=== PATIENT | male | born 1945 | race Caucasian/White ===

== ENCOUNTER 2017-10-19 13:25 | Observation (INO) | payer MEDICARE, BC ==
[2017-10-19] MEDS ORDERED: NACL 0.9% 3 ML SYG IV (14:00)
[2017-10-19] MEDS ORDERED: ACETAMINOPHEN 325 MG TAB PO (14:00)
[2017-10-19] MEDS ORDERED: ONDANSETRON 4 MG INJ IV (14:00)
[2017-10-19 14:13] LABS: ADD MAN DIFF? NO
[2017-10-19 14:20] LABS: BASOPHILS % 0.1 % (0.0-2.0); EOSINOPHILS # 0.2 10^3/ul (0.0-0.5); EOSINOPHILS % 2.6 % (0.0-7.0); HEMATOCRIT 30.1 % (42.0-52.0); HEMOGLOBIN 9.8 g/dl (14.0-18.0); LYMPHOCYTES # 2.1 10^3/ul (0.8-2.9); LYMPHOCYTES % 26.6 % (15.0-51.0); MEAN CORPUSCULAR HEMOGLOBIN 30.8 pg (29.0-33.0); MEAN CORPUSCULAR HGB CONC 32.6 g/dl (32.0-37.0); MEAN CORPUSCULAR VOLUME 94.7 fl (82.0-101.0); MONOCYTE # 0.7 10^3/ul (0.3-0.9); MONOCYTES % 8.8 % (0.0-11.0); NEUTROPHIL # 4.8 10^3/ul (1.6-7.5); NEUTROPHILS % 61.1 % (39.0-77.0); PLATELET COUNT 207 10^3/UL (140-415); RED BLOOD COUNT 3.18 10^6/ul (4.70-6.10); RED CELL DISTRIBUTION WIDTH 14.6 % (11.5-14.5)
[2017-10-19 14:20] LABS: WHITE BLOOD COUNT 7.8 10^3/ul (4.8-10.8)
[2017-10-19 14:40] LABS: MAGNESIUM 1.8 mg/dl (1.7-2.5)
[2017-10-19 14:42] LABS: ALANINE AMINOTRANSFERASE 37 IU/L (13-69); ALBUMIN 4.3 g/dl (3.3-4.9); ALBUMIN/GLOBULIN RATIO 1.38; ALKALINE PHOSPHATASE 101 IU/L (42-121); ANION GAP 16 (8-16); ASPARTATE AMINO TRANSFERASE 33 IU/L (15-46); BILIRUBIN,INDIRECT 0.1 mg/dl (0-1.1); BILIRUBIN,TOTAL 0.1 mg/dl (0.2-1.3); BLOOD UREA NITROGEN 13 mg/dl (7-20); CARBON DIOXIDE 31 mmol/L (21-31); CHLORIDE 104 mmol/L (97-110); CREATININE 1.01 mg/dl (0.61-1.24); GLUCOSE 109 mg/dl (70-220); IRON 48 ug/dl (35-150); POTASSIUM 4.1 mmol/L (3.5-5.1); SODIUM 147 mmol/L (135-144); TOTAL PROTEIN 7.4 g/dl (6.1-8.1)
[2017-10-19 14:51] LABS: % IRON SATURATION 14 % SAT (22-52); TOTAL IRON BINDING CAPACITY 348 ug/dl (241-421)
[2017-10-19 14:56] LABS: INR 0.93; PROTIME 12.6 Sec (11.9-14.9)
[2017-10-19 14:57] LABS: PARTIAL THROMBOPLASTIN TIME 25.8 Sec (25.0-35.0)
[2017-10-19] MEDS: SOD CHLORIDE 0.9% 1,000 ML IV (15:14)
[2017-10-19 15:16] LABS: FERRITIN 22.8 ng/ml (11.1-264.0)
[2017-10-19] MEDS ORDERED: PAROXETINE 20 MG TAB PO (15:30)
[2017-10-19 18:19] LABS: ADD UMIC NO; UR ASCORBIC ACID NEGATIVE (NEGATIVE); UR BILIRUBIN (Dip) NEGATIVE (NEGATIVE); UR BLOOD (Dip) NEGATIVE (NEGATIVE); UR CLARITY CLEAR (CLEAR); UR COLOR YELLOW (YELLOW); UR GLUCOSE (Dip) NEGATIVE (NEGATIVE); UR KETONES (Dip) NEGATIVE (NEGATIVE); UR LEUKOCYTE ESTERASE (Dip) NEGATIVE Leu/ul (NEGATIVE); UR NITRITE (Dip) NEGATIVE (NEGATIVE); UR SPECIFIC GRAVITY (Dip) 1.015 (1.003-1.030); UR TOTAL PROTEIN (Dip) NEGATIVE (NEGATIVE); UR UROBILINOGEN (Dip) NEGATIVE (NEGATIVE)
[2017-10-19] MEDS: PEG/ELECTROLYTES 4L BTL PO (19:09)
[2017-10-19] MEDS: VALSARTAN 160 MG TAB PO (20:53)
[2017-10-19] MEDS: ATORVASTATIN 10 MG TAB PO (20:54)
[2017-10-19] MEDS: PAROXETINE 20 MG TAB PO (20:54)
[2017-10-19] MEDS: MIRTAZAPINE 15 MG TAB PO (20:54)
[2017-10-20] MEDS ORDERED: LIDOCAINE 2% (SDV) 5 ML INJ
[2017-10-20] MEDS: SOD CHLORIDE 0.9% 1,000 ML IV (05:28)
[2017-10-20] MEDS: PANTOPRAZOLE (EC) 40 MG TAB PO (06:00)
[2017-10-20 06:13] LABS: ADD MAN DIFF? NO
[2017-10-20 06:14] LABS: BASOPHILS % 0.4 % (0.0-2.0); EOSINOPHILS # 0.2 10^3/ul (0.0-0.5); EOSINOPHILS % 3.8 % (0.0-7.0); HEMOGLOBIN 9.3 g/dl (14.0-18.0); LYMPHOCYTES # 1.8 10^3/ul (0.8-2.9); MEAN CORPUSCULAR HEMOGLOBIN 30.6 pg (29.0-33.0); MEAN CORPUSCULAR HGB CONC 32.1 g/dl (32.0-37.0); MEAN CORPUSCULAR VOLUME 95.4 fl (82.0-101.0); MONOCYTE # 0.5 10^3/ul (0.3-0.9); MONOCYTES % 9.2 % (0.0-11.0); NEUTROPHIL # 2.8 10^3/ul (1.6-7.5); NEUTROPHILS % 52.8 % (39.0-77.0); PLATELET COUNT 169 10^3/UL (140-415); RED BLOOD COUNT 3.04 10^6/ul (4.70-6.10); RED CELL DISTRIBUTION WIDTH 14.9 % (11.5-14.5)
[2017-10-20 06:14] LABS: WHITE BLOOD COUNT 5.3 10^3/ul (4.8-10.8)
[2017-10-20 06:51] LABS: ANION GAP 14 (8-16); BLOOD UREA NITROGEN 12 mg/dl (7-20); CALCIUM 8.3 mg/dl (8.4-10.2); CARBON DIOXIDE 29 mmol/L (21-31); CHLORIDE 106 mmol/L (97-110); CREATININE 0.94 mg/dl (0.61-1.24); GLUCOSE 106 mg/dl (70-220); POTASSIUM 4.7 mmol/L (3.5-5.1); SODIUM 144 mmol/L (135-144)
[2017-10-20] MEDS ORDERED: VALSARTAN 160 MG TAB PO (09:00)
[2017-10-20] MEDS ORDERED: PROPOFOL 40 ML (14:03)
== END 2017-10-20 16:15 | disposition home or self-care (01) ==
LOC: MS3 13:25 → MS2 22:00
DX: K29.70 Gastritis, unspecified, without bleeding (principal); K20.9 Esophagitis, unspecified; D12.3 Benign neoplasm of transverse colon; K57.30 Diverticulosis of large intestine without perforation or abscess without bleeding; K64.9 Unspecified hemorrhoids; K44.9 Diaphragmatic hernia without obstruction or gangrene; I10 Essential (primary) hypertension; E78.5 Hyperlipidemia, unspecified; K21.9 Gastro-esophageal reflux disease without esophagitis
CPT/HCPCS: 43239; 71045; 80048; 80053; 81003; 82728; 83540; 83735; 84443; 85025; 85610; 85730; 86850; 86900; 86901; 86920; 88305; 88312; 88313; 93005; G0378